=== PATIENT | female | born 1960 | race Caucasian/White ===

== ENCOUNTER 2022-05-15 06:07 | Day surgery (SDC) | payer OTHER ==
[2022-05-15] MEDS ORDERED: Lactated Ringers 1,000 ML IV SCH (06:30)
[2022-05-15] MEDS ORDERED: DIPRIVAN 200 MG/20 ML IV ONE ×2 (07:12→07:51)
[2022-05-15] MEDS ORDERED: Xylocaine-Mpf 2% 5 Ml Vial ONE (07:12)
[2022-05-15] MEDS ORDERED: ROBINUL ONE (08:49)
[2022-05-15 09:12] VITALS: BP 135/83; PULSE 61; O2SAT 98
--- NOTE | 2022-05-15 11:41 | OP ---
SURGERY DATE/TIME: 05/15/2022 0739 PREOPERATIVE DIAGNOSES: 1) Personal history of colon polyps. 2) Family history of colon cancer. POSTOPERATIVE DIAGNOSES: 1) Large proximal sigmoid colon polyp unresectable at 60 cm scope depth. 2) Two small sessile polyps from the distal sigmoid colon. PROCEDURE: Colonoscopy. SURGEON: Sami Vaca M.D. ANESTHESIA: MAC by Ez Mcintyre CRNA. ESTIMATED BLOOD LOSS: Minimal. SPECIMENS: 1) Hot forceps biopsy from unresectable, large proximal sigmoid colon polyp x2. 2) Hot forceps polypectomy from distal sigmoid colon polyp x2. INDICATION FOR PROCEDURE: The patient has a family history of colon cancer with previous history of a large polyp resected in 2019 in [place] and subsequent polyps found on colonoscopy in 2019. DESCRIPTION OF PROCEDURE: She underwent informed consent and was taken to the endoscopy suite. She was placed in left lateral decubitus position. Anesthesia was titrated to desired level of consciousness. Digital rectal exam showed normal sphincter tone and no internal lesions. The scope was passed through the rectum and the entire colonic mucosa was traversed. The level of cecum was reached and verified with direct visualization of the ileocecal valve. There were no obvious lesions or masses in the cecum. Upon withdrawal careful mucosal inspection revealed no abnormalities until 60 cm scope depth in descending/proximal sigmoid colon region. There was a large polypoid lesion that was approximately half the diameter of the colon opening. It had a large base and was felt to be unresectable with hot forceps in this region. A picture was taken representatively to show the size of the lesion at 60 cm scope depth. Two hot forceps biopsies with no bleeding taken from that region. Upon further withdrawal, there were two small sessile polyps in the distal sigmoid colon approximately 25 cm with a scope depth in close proximity. Those were both removed with hot forceps in their entirety with no bleeding. No other lesions were encountered. Retroflexion showed no internal lesions. The scope was removed. The patient was transferred to the recovery room in good condition. She will be referred to general surgery for definitive treatment of this large polypoid lesion.
== END 2022-05-15 09:28 | disposition home or self-care (01) ==
LOC: SDC 06:07
PROVIDERS: ATTEND Family Medicine
DX: Z09 Encounter for follow-up examination after completed treatment for conditions other than malignant neoplasm (principal); Z86.010 Personal history of colon polyps; Z80.0 Family history of malignant neoplasm of digestive organs; K63.5 Polyp of colon; E11.9 Type 2 diabetes mellitus without complications
CPT/HCPCS: 82947; J2704

== ENCOUNTER 2022-06-17 10:55 | Day surgery (SDC) | payer OTHER ==
--- NOTE | 2022-06-17 09:26 | HP ---
DATE OF SURGERY: 06/17/2022 HISTORY OF PRESENT ILLNESS: The patient is a 62-year-old with history of large polyp removed by Dr. Vaca in the past. He is in need of surgical evaluation possible follow up endoscopy. Family history of father with colon cancer. PAST MEDICAL HISTORY: Cataracts. Diabetes mellitus type II. Hypertension. Small cell lung cancer. Gastroesophageal reflux disease. Complications from rectal or sling-type procedure. Arthritis, anemia, urinary tract infections, hyperlipidemia, reflux. PAST SURGICAL HISTORY: Hysterectomy and bilateral salpingo-oophorectomy in the past. Colonoscopy in the past. Laparoscopy for infertility. Cystoscopy with bladder dilatation. Vulvar reconstruction. Left arm fracture repair in the past. Lymph node removed. Partial colectomy. Radiofrequency ablation (RFA) spinal procedures. Endoscopy in the past. MEDICATIONS: Moderna vaccine. Metformin, famotidine, olmesartan, atenolol. ALLERGIES: CIPROFLOXACIN. CODEINE. DOXYCYCLINE. PROCAINE. SULFITE. SULFA. PROMETHAZINE. EPINEPHRINE. NOROXIN. PYRIDIUM. IV CONTRAST. SUTURE SENSITIVITY IN THE PAST. GLUTEN. FAMILY HISTORY: Lung cancer. Father with colon cancer. Renal disease. SOCIAL HISTORY: Smoker. No alcohol abuse. REVIEW OF SYSTEMS: Fourteen systems reviewed. Multiple medical problems as mentioned above. Other systems negative or noncontributory as above and per preadmission questionnaire. PHYSICAL EXAMINATION: GENERAL: No acute distress. HEENT: Sclerae nonicteric. EOMI. Oral mucous membranes moist. NECK: No JVD. CHEST: Equal excursion, nonlabored breathing. CVS: Regular rate and rhythm. ABDOMEN: Soft. No peritoneal signs. EXTREMITIES: No significant edema. NEURO: Alert, oriented, moving extremities symmetrically. RECTAL: Deferred timed to endoscopy exam. PSYCH: Appropriate mood and affect. SKIN: Dry. IMPRESSION: History of large polyp unable to be removed by Dr. Vaca. She was discussed options of attempt removal with some lifting material or tertiary referral, endoscopic opinion versus consideration of surgical resection at this point. If biopsies are benign, she would like to try follow up colonoscopy with attempt at polypectomy per the surgeon there. General risk of bleeding or infection, risk of bowel injury or perforation, risk of missed or nondiagnosis or incomplete exam, general risk of anesthesia or sedation, risk of bowel prep. She understands with a larger polyp there is a little bit higher risk of perforation possibly requiring other procedures, ongoing morbidity but not limited to, possibility if unable to remove safely may need to decide to consider surgery on this at a later date. She understands and agrees to the planned procedure, will proceed with colonoscopy possible biopsy or polypectomy depending on operative findings.
[2022-06-17] MEDS ORDERED: Lactated Ringers 1,000 ML IV SCH (11:30)
[2022-06-17] MEDS ORDERED: Lactated Ringers 1,000 ML IV ONE (11:44)
[2022-06-17] MEDS ORDERED: DIPRIVAN 200 MG/20 ML IV ONE ×2 (12:42→12:59)
[2022-06-17] MEDS ORDERED: Versed 2 MG/2 ML Injection ONE (12:43)
[2022-06-17 14:06] VITALS: BP 143/84; PULSE 51; O2SAT 97
--- NOTE | 2022-06-18 11:15 | OP ---
SURGERY DATE/TIME: 06/17/2022 1246 PREOPERATIVE DIAGNOSIS: History of large polyp that Dr. Vaca removed endoscopically, needs re-evaluation endoscopically as well as marking location. POSTOPERATIVE DIAGNOSES: 1) Large broad based polyp seemed to be proximal sigmoid colon. 2) Diverticulosis. 3) Fair bowel prep. PROCEDURES: Colonoscopy to cecum with hot snare large polyp or lesion proximal sigmoid colon approximately 35 to 40 cm with injection of lift to attempt partial polypectomy as tattooing with spot tattoo. SURGEON: Dr. Arnaldo Rendon. ANESTHESIA: MAC. ESTIMATED BLOOD LOSS: Minimal. INDICATIONS: As noted above. Risks and benefits explained in detail but not limited to and consent obtained. The patient had been given the option of evaluating surgically here locally versus tertiary center, to remove endoscopically versus surgical resection. She preferred to try follow up colonoscopy and possible attempt at polypectomy as local surgeon is here at this time. General risk of bleeding or infection, risk of perforation but not limited to, consent obtained. DESCRIPTION OF PROCEDURE AND FINDINGS: The patient is taken to the endoscopy room. MAC anesthesia induced. After official time out and no disagreement with planned procedure, digital rectal exam did not reveal any rectal masses. Video colonoscope inserted and passed up through the tortuous sigmoid colon. Large polypoid lesion and ulceration. Whether ulceration was previously biopsied by Dr. Vaca or not unclear. The scope was able to be passed around to the cecum. Appendiceal orifice and valve well visualized and photo documented. Patient did have some left colon diverticula. Prep overall was only fair with some liquidy semisolid stool throughout the colon just slightly limiting the exam for small lesions. The scope is carefully pulled back to this large polypoid area 35 to 40 cm from anal verge. Initially the material to wero it or not was not available. What was available at this facility. Lifting agent is carefully injected at the base further in between the polyp area and bowel wall and this was accomplished. Attempted to put the snare in but this area was firm. I was only able to snare off a portion of this. Whether this is a hardened lipoma versus a stromal tumor or other etiology underneath is unclear. It was felt this could not be safely removed endoscopically right at the moment as I had taken a large piece of this it is felt that we should wait for path and then determine options after that, the stromal tumor removed likely will recommend resection. If only lipomatous density discussed options. A portion was retrieved and passed off. It appeared to have adequate hemostasis at the partial polypectomy removal site. Just downstream was injected with 1 cc at one location and 0.5 cc in another location spot tattoo to wero the location. Otherwise at this time I do not see any other large polyps or masses that could be visualized. Again, the prep was fair with liquidy semisolid stool just limiting the exam. The scope is withdrawn. Withdrawal time had been about 10 to 15 minutes. Findings discussed with the family out in the waiting area.
== END 2022-06-17 14:23 | disposition home or self-care (01) ==
LOC: SDC 10:55
PROVIDERS: ATTEND Surgery
DX: Z09 Encounter for follow-up examination after completed treatment for conditions other than malignant neoplasm (principal); Z86.010 Personal history of colon polyps; K63.5 Polyp of colon; K57.30 Diverticulosis of large intestine without perforation or abscess without bleeding; E11.9 Type 2 diabetes mellitus without complications; Z80.0 Family history of malignant neoplasm of digestive organs; Z85.118 Personal history of other malignant neoplasm of bronchus and lung
CPT/HCPCS: 82947; J2250; J2704

== ENCOUNTER 2023-12-28 11:31 | Emergency (ER) | payer MEDICARE ==
[2023-12-28 11:52] VITALS: TEMP 96.9
[2023-12-28] MEDS ORDERED: Lactated Ringers 1,000 ML IV ONE (11:56)
[2023-12-28] MEDS ORDERED: PROTONIX 40 MG IV IV ONE (11:56)
[2023-12-28] MEDS ORDERED: Zofran 4 MG/2 ML VIAL ONE (11:56)
[2023-12-28] MEDS ORDERED: MORPHINE SULFATE 4 MG INJ ONE (11:56)
[2023-12-28] MEDS: MORPHINE SULFATE 4 MG INJ IV ONE (12:00)
[2023-12-28] MEDS: Lactated Ringers 1,000 ML IV ONE (12:00)
[2023-12-28] MEDS: Zofran 4 MG/2 ML VIAL IV ONE (12:00)
[2023-12-28] MEDS: PROTONIX 40 MG IV IV ONE (12:01)
--- NOTE | 2023-12-28 12:10 | ERPHSYRPT ---
- History of Present Illness Time Seen by Provider: 12/28/23 12:06 Historian: patient Exam Limitations: no limitations Patient Subjective Stated Complaint: pt here for pain to right lower abd that radiates to groin area, with nausea, no fever Triage Nursing Assessment: pt alert, walked in, unable to get comfortable, able to void but feels pressure in groin area abd soft but tender to touch. bs heard Physician History: Patient is 63-year-old female with significant past medical history of type 2 diabetes hypertension history of chronic renal insufficiency stage III ate something last night especially taco and at around 2 or 3:00 in the morning she started having a severe abdominal pain which was initially in the back radiating to the right lower abdomen and right groin area pain was also in the right lower inguinal area. She is also complaining of nausea and unable to keep anything down. She denies any fever or chills. She is complaining of some difficulty in urination. She feels gassy as well as when she tried to pass the bowel movement her abdominal pain get worse. Initially her abdominal pain was around periumbilical area and general abdominal area but now it has localized into the right inguinal area right lower quadrant and groin area. Timing/Duration: today Activities at Onset: none Quality: cramping, sharpness, stabbing Abdominal Pain Onset Location: RLQ, periumbilical, suprapubic, flank Pain Radiation: RLQ, groin Severity of Pain-Max: moderate Severity of Pain-Current: moderate Modifying Factors: Improves With: nothing Associated Symptoms: denies symptoms Previous symptoms: no prior history Body Map: 1 - area of pain Allergies/Adverse Reactions: doxycycline [From Vibramycin] Allergy (Severe, Verified 12/28/23 11:44) Shortness of Breath epinephrine Allergy (Severe, Verified 12/28/23 11:44) Shortness of Breath Iodinated Contrast Media Allergy (Severe, Verified 12/28/23 11:44) NSAIDS (Non-Steroidal Anti-Inflamma Allergy (Severe, Verified 12/28/23 11:44) procaine [From Novocain] Allergy (Severe, Verified 12/28/23 11:44) Anaphylactic Reaction Sulfa (Sulfonamide Antibiotics) Allergy (Severe, Verified 12/28/23 11:44) Anaphylactic Reaction sulfite Allergy (Severe, Verified 12/28/23 11:44) Anaphylactic Reaction codeine Allergy (Intermediate, Verified 12/28/23 11:44) Irregular Heart Beat phenazopyridine [From Pyridium] Allergy (Intermediate, Verified 12/28/23 11:44) Skin Irritation ciprofloxacin Adverse Reaction (Intermediate, Verified 12/28/23 11:44) Rash gluten Adverse Reaction (Intermediate, Verified 12/28/23 11:44) Diarrhea lactase [From Dairy Aid] Adverse Reaction (Intermediate, Verified 12/28/23 11:44) Diarrhea norfloxacin [From Noroxin] Adverse Reaction (Intermediate, Verified 12/28/23 11:44) Rash Sutures Adverse Reaction (Intermediate, Verified 12/28/23 11:44) lisinopril Adverse Reaction (Verified 12/28/23 11:44) Home Medications: Famotidine 20 mg PO BID 04/08/22 [History] Insulin NPH Human Isophane [Novolin N] 40 unit SQ HS 04/08/22 [History] Metformin HCl 500 mg [Glucophage 500 MG] 500 mg PO HS 04/08/22 [History] Olmesartan Medoxomil [Benicar] 40 mg PO DAILY 04/08/22 [History] atenoloL [Atenolol] 25 mg PO DAILY 04/08/22 [History] Hx Influenza Vaccination/Date Given: No Hx Pneumococcal Vaccination/Date Given: No Immunizations Up to Date: Yes Travel Risk - International Travel Have you traveled outside of the country in past 3 weeks: No - Emerging Infectious Disease Are you exhibiting symptoms associated with any current EIDs: Yes Symptoms: Abdominal Pain - Review of Systems Constitutional: No Fever, No Chills Eyes: No Symptoms Ears, Nose, & Throat: No Symptoms Respiratory: No Cough, No Dyspnea Cardiac: No Chest Pain, No Edema, No Syncope Abdominal/Gastrointestinal: Abdominal Pain, Nausea, No Vomiting, No Diarrhea Genitourinary Symptoms: No Dysuria Musculoskeletal: No Back Pain, No Neck Pain Skin: No Rash Neurological: No Dizziness, No Focal Weakness, No Sensory Changes Psychological: No Symptoms Endocrine: No Symptoms All Other Systems: Reviewed and Negative - Past Medical History Pertinent Past Medical History: Yes Neurological History: Other ENT History: Cataracts Cardiac History: Angina, Hypertension Respiratory History: Bronchitis Endocrine Medical History: Diabetes Type II, Other Musculoskeletal History: Osteoarthritis GI Medical History: Diverticulosis, GERD, Polyps History: Renal Disease, Other Psycho-Social History: Anxiety Female Reproductive Disorders: No Pertinent History Other Medical History: MODERATE KIDNEY FAILURE 2X, IS BETTER NOW. FATTY LIVER. - Past Surgical History Past Surgical History: Yes Neuro Surgical History: No Pertinent History Cardiac: No Pertinent History Respiratory: No Pertinent History Gastrointestinal: Appendectomy, Exploratory Laparoscopy, Rectal Surgery Genitourinary: No Pertinent History Musculoskeletal: Other Female Surgical History: Hysterectomy, Other Other Surgical History: BSO AND RECTOCELE REPAIR, PARTIAL VULVECTOMY X2, VULVAR RECONSTRUCTION, LEFT ARM FRACTURE REPAIR, EXP LAP X4, CYSTO WITH BLADDER DILATION X6 RFA LUMBAR X2, COLONOSCOPY X4, LYMPH NODE REMOVED - Social History Smoking Status: Current every day smoker How long have you smoked: age 11 Exposure to second hand smoke: Yes Drug Use: none - Social Determinants of Health Will the patient participate in the screening: Declined to provide - Nursing Vital Signs Nursing Vital Signs: Initial Vital Signs Temperature 96.9 F 12/28/23 11:51 Pulse Rate 67 12/28/23 11:51 Respiratory Rate 18 12/28/23 11:51 Blood Pressure 155/70 12/28/23 11:51 O2 Sat by Pulse Oximetry 98 12/28/23 11:51 Pain Scale Pain Intensity 4 - Physical Exam General Appearance: no apparent distress, alert Eye Exam: PERRL/EOMI, eyes nml inspection Ears, Nose, Throat Exam: normal ENT inspection, pharynx normal, moist mucous membranes Neck Exam: normal inspection, non-tender, supple, full range of motion Respiratory Exam: normal breath sounds, lungs clear, No respiratory distress Cardiovascular Exam: regular rate/rhythm, normal heart sounds Gastrointestinal/Abdomen Exam: soft, tenderness (RLQ, Groin), No mass Pelvic Exam: not done Rectal Exam: deferred Back Exam: normal inspection, normal range of motion, No CVA tenderness, No vertebral tenderness Extremity Exam: normal inspection, normal range of motion, pelvis stable Neurologic Exam: alert, oriented x 3, cooperative, normal mood/affect, nml cerebellar function, sensation nml, No motor deficits Skin Exam: normal color, warm, dry SpO2: 98 - Course Nursing assessment & vital signs reviewed: Yes - CT Exams Abdomen/Pelvis CT Interpretation: Tele-radiologist Report Ordered Tests: Active Orders 24 hr Category Date Time Status IV Insertion STAT Care 12/28/23 11:49 Active ABDOMEN AND PELVIS W/0 CONTRAS [CT] Stat Exams 12/28/23 12:35 Completed AMYLASE Stat Lab 12/28/23 11:53 Completed CBC W DIFF Stat Lab 12/28/23 11:53 Completed CMP Stat Lab 12/28/23 11:53 Completed LIPASE Stat Lab 12/28/23 11:53 Completed UA W/RFX UR CULTURE Stat Lab 12/28/23 11:54 Completed Medication Summary Discontinued Medications Generic Name Dose Route Start Last Admin Trade Name Freq PRN Reason Stop Dose Admin Hydromorphone HCl Confirm 12/28/23 12:22 Hydromorphone 1 Mg/1ml Inj Administered 12/28/23 12:23 Dose 1 mg .ROUTE .STK-MED ONE Hydromorphone HCl 1 mg 12/28/23 12:23 12/28/23 12:26 Hydromorphone 1 Mg/1ml Inj IV 12/28/23 12:24 1 mg STAT ONE Administration Hydromorphone HCl 1 mg 12/28/23 13:28 12/28/23 13:31 Hydromorphone 1 Mg/1ml Inj IV 12/28/23 13:29 1 mg STAT ONE Administration Hydromorphone HCl Confirm 12/28/23 13:30 Hydromorphone 1 Mg/1ml Inj Administered 12/28/23 13:31 Dose 1 mg .ROUTE .STK-MED ONE Lactated Ringer's 1,000 mls @ 999 mls/hr 12/28/23 11:51 12/28/23 13:01 Lactated Ringers IV 12/28/23 12:51 Infused .Q1H1M ONE Infusion Lactated Ringer's Confirm 12/28/23 11:56 Lactated Ringers Administered 12/28/23 11:57 Dose 1,000 mls @ ud IV .STK-MED ONE Ceftriaxone Sodium 1 gm in 100 mls @ 200 mls/hr 12/28/23 12:58 12/28/23 13:41 Rocephin 1 Gm / 100 Ml Nacl IV 12/28/23 13:27 Infused STAT ONE Infusion Ceftriaxone Sodium Confirm 12/28/23 13:03 Rocephin 1 Gm / 100 Ml Nacl Administered 12/28/23 13:04 Dose 1 gm in 100 mls @ ud IV .STK-MED ONE Morphine Sulfate 4 mg 12/28/23 11:51 12/28/23 12:00 Morphine Sulfate 4 Mg/Ml Injection IV 12/28/23 11:52 4 mg STAT ONE Administration Morphine Sulfate Confirm 12/28/23 11:56 Morphine Sulfate 4 Mg/Ml Injection Administered 12/28/23 11:57 Dose 4 mg .ROUTE .STK-MED ONE Ondansetron HCl 4 mg 12/28/23 11:51 12/28/23 12:00 Ondansetron Hcl 4 Mg/2 Ml Vial IV 12/28/23 11:52 4 mg STAT ONE Administration Ondansetron HCl Confirm 12/28/23 11:56 Ondansetron Hcl 4 Mg/2 Ml Vial Administered 12/28/23 11:57 Dose 4 mg .ROUTE .STK-MED ONE Pantoprazole Sodium 40 mg 12/28/23 11:51 12/28/23 12:01 Pantoprazole 40 Mg Vial IV 12/28/23 11:52 40 mg STAT ONE Administration Pantoprazole Sodium Confirm 12/28/23 11:56 Pantoprazole 40 Mg Vial Administered 12/28/23 11:57 Dose 40 mg IV .STK-MED ONE Lab/Rad Data: Laboratory Result Diagrams 12/28/23 11:53 12/28/23 11:53 Laboratory Results 12/28/23 12/28/23 12/28/23 Range/Units 11:54 11:53 11:53 WBC 12.0 H (3.98-10.04) x10^3/uL RBC 4.09 (3.93-5.22) x10^6/uL Hgb 13.7 (11.2-15.7) g/dL Hct 38.9 (34.1-44.9) % MCV 95.1 H (79.4-94.8) fL MCH 33.5 H (25.6-32.2) pg MCHC 35.2 (32.2-35.5) g/dL RDW 12.4 (11.7-14.4) % Plt Count 299 (182-369) x10^3/uL MPV 9.9 (9.4-12.3) fL Gran % 70.4 (34.0-71.1) % Immature Gran % (Auto) 0.8 H (0.001-0.429) % Nucleat RBC Rel Count 0.0 (0.00-0.2) % Eos # (Auto) 0.12 (0.04-0.36) x10^3/uL Immature Gran # (Auto) 0.10 H (0.001-0.031) x10^3u/L Absolute Lymphs (auto) 2.55 (1.18-3.74) x10^3/uL Absolute Monos (auto) 0.71 (0.24-0.86) x10^3/uL Absolute Nucleated RBC 0.00 (0.00-0.012) x10^3u/L Lymphocytes % 21.2 (19.3-51.7) % Monocytes % 5.9 (4.7-12.5) % Eosinophils % 1.0 (0.7-5.8) % Basophils % 0.7 (0.1-1.2) % Absolute Granulocytes 8.44 H (1.56-6.13) x10^3/uL Basophils # 0.09 H (0.01-0.08) x10^3/uL Sodium 139 (135-145) mmol/L Potassium 3.9 (3.5-5.1) mmol/L Chloride 107 (98-107) mmol/L Carbon Dioxide 18 L (22-30) mmol/L Anion Gap 18.3 H (5-15) MEQ/L BUN 17 (7-17) mg/dL Creatinine 1.38 H (0.52-1.04) mg/dL Estimated GFR 42.5 ML/MIN Glucose 184 H (74-106) mg/dL Calcium 9.7 (8.4-10.2) mg/dL Total Bilirubin 0.50 (0.2-1.3) mg/dL AST 32 (14-36) U/L ALT 43 H (0-35) U/L Alkaline Phosphatase 93 (38-126) U/L Serum Total Protein 7.5 (6.3-8.2) g/dL Albumin 4.5 (3.5-5.0) g/dL Amylase 135 H (30-110) U/L Lipase 332 H (23-300) U/L Urine Color Yellow (Yellow) Urine Appearance Cloudy A (Clear) Urine pH 5.0 (4.6-8.0) Ur Specific [place] 1.015 (1.005-1.030) Urine Protein Negative (Negative) Urine Glucose (UA) Negative (Negative) mg/dL Urine Ketones Negative (Negative) Urine Blood Moderate A (Negative) Urine Nitrite Negative (Negative) Urine Bilirubin Negative (Negative) Urine Urobilinogen 0.2 (0.2) mg/dL Ur Leukocyte Esterase Negative (Negative) U Hyaline Cast (Auto) NONE SEEN (0-2) /LPF Urine Microscopic RBC 51-100 A (0-5) /HPF Urine Microscopic WBC 0-2 (0-5) /HPF Ur Epithelial Cells None Seen (None Seen) /HPF Urine Bacteria None Seen (None Seen) /HPF Urine Culture Reflexed NO (NO) Unremarkable lower Ct chest cuts. IMPRESSION: 1. A tiny 2.8 mm dense stone is noted related to the right vesicoureteric junction, with mild backpressure changes. 2. Other bilateral lower calyceal non-obstructing stones. 3. Tiny right middle calyceal gravel. 4. Bilateral renal cortical cysts. 5. Mild fatty hepatomegaly. 6. A left adrenal gland nodule measuring 25 mm, showed a negative HU value denoting lipid-rich adenoma. 7. Sigmoid multiple diverticular outpouchings, with no surrounding inflammatory changes. [facility] - Progress Progress: improved, pain not gone completely Progress Note: 12/28/23 13:51 Patient did pass the stone urine was drained and it did show around 2.5 mm stone which was sent for laboratory analysis. Patient is informed. Counseled pt/family regarding: lab results, diagnosis, need for follow-up, rad results Medical Desision Making - Independent Historian Additional History obtained from: Spouse - Discussion of managment Reviewed:: Test results, Need for additional workup - Diagnostic Testing Diagnostic test were ordered, analyzed, and reviewed by me: Yes Radiological Interpretation: Teleradiologist Report - Risk of complications The pt has a mod risk of morbidity or mortality based on: Need for prescription drug management, Need for minor surgical intervention in patient with know risk factors - Departure Departure Disposition: Home Clinical Impression: Right ureteral calculus Condition: Stable Critical Care Time: No Referrals: NERISSA RAWLS MD [Emergency Provider] - Follow Up with PCP/3 days Instructions: Kidney stones in adults, Kidney stone diet Additional Instructions: Discharge/Care Plan JUANY ERVIN was seen on 12/28/23 in the Emergency Room. The patient was counseled regarding Diagnosis,Lab results, Imaging studies, need for follow up and when to return to the Emergency Room. Prescriptions given: Discharge Note I have spoken with the patient and/or caregivers. I have explained the patient's condition, diagnosis and treatment plan based on the information available to me at this time. I have answered the patient's and/or caregiver's questions and addressed any concerns. The patient and/or caregivers have as good understanding of the patient's diagnosis, condition and treatment plan as can be expected at this point. The vital signs have been stable. The patient's condition is stable and appropriate for discharge from the emergency department. The patient will pursue further outpatient evaluation with the primary care physician or other designated or consulting physician as outlined in the discharge instructions. The patient and/or caregivers are agreeable to this plan of care and follow-up instructions have been explained in detail. The patient and/or caregivers have received these instruction. The patient/and or caregivers are aware that any significant change in condition or worsening of symptoms should prompt an immediate return to this or the closest emergency department or call 911. JUANY ERVIN was seen on 12/28/23 n the Emergency Room. At that time you were treated for an emergent condition, during your visit Laboratory, Radiology and/or other procedures may have been ordered. It is very important that you follow-up with your Primary Care Physician SALIMA PANDEY within the next 24-48 hours to review your Emergency Room visit and the final results of testing that was ordered. Some test results such as Urine Cultures, Blood Cultures, and other cultures if ordered will not be finalized for 24-48 hours. If you do not have a Primary Care Provider please call the medical records department at [phone] ext [phone] to obtain a copy of your results or you may sign into our patient portal to obtain these results by visiting us @ [email or web address] and completing the following steps: 1. Click on the Patient Portal link 2. Click the Patient Self Enrollment Link to complete the enrollment form and entering your 3. Once the enrollment form is completed you will receive an email with a tem porary ID and password at the email address you provided. 4. Next choose a user name and password. Your user name must be at least 4 characters long and your password must be at least 4 characters long. 5. Choose a security question from the list and provide your answer to the question. If you already have signed into the Health Portal you may access your Health Care Information 23/09 by the following steps: 1. Login to our website @ [email or web address] 2. Enter your original user name and password. FAQS The [facility] Health Portal is an online tool that contains your Lab Results, Radiology Reports, Visit History, Discharge Instructions and Health Summary Lab and Radiology Results will not be available for 72 hours on the portal. The Portal is a secure site, passwords are encryted and URLs are re-written so they cannot be copied and pasted. You and authorized family members are the only ones who can access your Portal. Also there is a timeout feature that protects your information if you leave the Portal page open. If you have technical difficulty please use the Contact Us link on the page this will allow you to submit any questions you have regarding the Portal or you may contact the Medical Record Department at [phone]. Prescriptions: Cefdinir 300 mg PO BID #15 cap Ciprofloxacin [Cipro 500 MG] 500 mg PO BIDAC #20 tablet
[2023-12-28 12:13] LABS: Absolute Neutrophil Ct (ANC) 8.44 x10^3/uL (1.56-6.13); BASOPHIL % 0.7 % (0.1-1.2); Basophil (Absolute #) 0.09 x10^3/uL (0.01-0.08); Eosinophil (Absolute #) 0.12 x10^3/uL (0.04-0.36); Hematocrit 38.9 % (34.1-44.9); Hemoglobin 13.7 g/dL (11.2-15.7); IMMATURE GRAN % 0.8 % (0.001-0.429); Lymphocyte (Absolute #) 2.55 x10^3/uL (1.18-3.74); Lymphocytes % 21.2 % (19.3-51.7); Mean Cell Volume 95.1 fL (79.4-94.8); Mean Corpuscular Hemoglobin 33.5 pg (25.6-32.2); Mean Corpuscular Hgb Concent. 35.2 g/dL (32.2-35.5); Mean Platelet Volume 9.9 fL (9.4-12.3); Monocyte (Absolute #) 0.71 x10^3/uL (0.24-0.86); Monocytes % 5.9 % (4.7-12.5); Neutrophil % 70.4 % (34.0-71.1); Platelet Count 299 x10^3/uL (182-369); Red Blood Count 4.09 x10^6/uL (3.93-5.22); Red Cell Distribution Width 12.4 % (11.7-14.4)
[2023-12-28] MEDS ORDERED: Hydromorphone 1 mg/ml Injection ONE ×2 (12:22→13:30)
[2023-12-28 12:25] LABS: ALBUMIN 4.5 g/dL (3.5-5.0); ANION GAP 18.3 MEQ/L (5-15); BILIRUBIN,TOTAL 0.5 mg/dL (0.2-1.3); Calcium 9.7 mg/dL (8.4-10.2); Creatinine 1 1.38 mg/dL (0.52-1.04); EST GLOMERULAR FILTRATION RATE 42.5 ML/MIN; Potassium 3.9 mmol/L (3.5-5.1); Total Protein 7.5 g/dL (6.3-8.2)
[2023-12-28] MEDS: Hydromorphone 1 mg/ml Injection IV ONE ×2 (12:26→13:31)
[2023-12-28 12:27] LABS: Appearance Cloudy (Clear); Bacteria None Seen /HPF (None Seen); Bilirubin Negative (Negative); Blood Moderate (Negative); Epithelial Cells None Seen /HPF (None Seen); Glucose, Urine Negative (Negative); Hyaline Casts NONE SEEN /LPF (0-2); Ketones Negative (Negative); Leukocyte Esterase Negative (Negative); Nitrite Negative (Negative); Protein,Urine Dip Negative (Negative); RBC 51-100 /HPF (0-5); Specific Gravity 1.015 (1.005-1.030); Urobilinogen 0.2 mg/dL (0.2); WBC 0-2 /HPF (0-5)
[2023-12-28 13:02] VITALS: RESP 16
[2023-12-28] MEDS ORDERED: ROCEPHIN 1 GM / 100 ML NaCl 1 GM/100 ML IVPB IV ONE (13:03)
[2023-12-28] MEDS: ROCEPHIN 1 GM / 100 ML NaCl 1 GM/100 ML IVPB IV ONE (13:06)
--- NOTE | 2023-12-28 13:36 | XRAY ---
CLINICAL HISTORY: right CVA and lower quadrant pain COMPARISON: none. TECHNIQUE: A CT scan of the abdomen and pelvis was performed without IV contrast. Coronal and sagittal reconstructive images were also obtained.One of the following dose-reduction techniques was utilized for this exam. Automated exposure control, adjustment of the mA and/or kV according to patient size, and use of iterative reconstruction. FINDINGS: Abdomen: A tiny 2.8 mm dense stone is noted related to the right vesicoureteric junction, with upstream mild dilatation of the right ureter and right pelvicalyceal system. Right lower calyceal conglomerate dense stones measuring collectively 9 x 3 mm along maximum axial diameters. Tiny right middle calyceal gravel. Right lower polar renal cyst measuring 42 mm along maximum diameter. Right godfrey-renal mild fat smudging and stranding. A left lower calyceal triangular dense stone measuring 10 x 9 mm along maximum CC and TV diameters, no backpressure changes. Other tiny hyperdensities are seen at the left upper pole eccentrically located and seem to relate to the renal vessels, likely vascular calcification. Small left midpolar exophytic isodense lesion, likely exophytic high proteinaceous cyst measuring 9 mm. Another left lower polar 11 mm exophytic cyst with faint marginal tiny classifications. The liver is enlarged and measures 18 cm showing diffuse reduced parenchymal density. No focal parenchymal abnormality. The portal vein, intrahepatic biliary radicals, and the bile ducts are normal. The spleen, pancreas, and right adrenal gland are unremarkable. A left adrenal gland nodule measuring 25 mm, showed a negative HU value denoting lipid-rich adenoma. The gallbladder is normal. No pericholecystic collection or radio-dense calculi in the gall bladder. A small wide nech gastric fundus posteriorly located diverticulum measuring 15 mm along maximum TV diameter. The ascending colon, the transverse colon, the descending colon, visualized small bowel loops are unremarkable. The appendix is normal in size without godfrey appendiceal fat stranding and without an appendicolith. There is no evidence of significant enlargement of the mesenteric or retroperitoneal lymph nodes. Tiny reactive-looking para-aortic and aorto-caval and mesenteric lymph nodes. A left lumbar mesenteric fat calcific focus, likely calcified lymph node. Atherosclerotic changes of the abdominal aorta and both iliac arteries. Small omental containing umbilical hernia. Pelvis: The urinary bladder is unremarkable. Sigmoid multiple diverticular outpouchings, with no surrounding inflammatory changes. The pelvic structures are unremarkable. No evidence of pelvic lymphadenopathy. Small left inguinal fat-containing inguinal hernia. Spondylodegenerative changes with moderate levoscoliosis. No lytic or sclerotic bone lesions Unremarkable lower Ct chest cuts. IMPRESSION: 1. A tiny 2.8 mm dense stone is noted related to the right vesicoureteric junction, with mild backpressure changes. 2. Other bilateral lower calyceal non-obstructing stones. 3. Tiny right middle calyceal gravel. 4. Bilateral renal cortical cysts. 5. Mild fatty hepatomegaly. 6. A left adrenal gland nodule measuring 25 mm, showed a negative HU value denoting lipid-rich adenoma. 7. Sigmoid multiple diverticular outpouchings, with no surrounding inflammatory changes. [facility] was called at [phone] at 12:28 PM ENDOSCOPIC TECHNICIAN, 02/27/2024, and Michelle (Nurse) was informed regarding the presence of important medical findings on the report. Electronically Signed by: Rajan Valladares MD. (12/28/2023 13:33:37 EDT)
[2023-12-28 13:50] VITALS: O2SAT 98
[2023-12-28 14:03] VITALS: BP 140/96
[2023-12-28 14:22] VITALS: PULSE 80
== END 2023-12-28 14:22 | disposition home or self-care (01) ==
LOC: ED 11:31
DX: N20.1 Calculus of ureter (principal); R10.31 Right lower quadrant pain; R11.2 Nausea with vomiting, unspecified; R39.198 Other difficulties with micturition; E11.22 Type 2 diabetes mellitus with diabetic chronic kidney disease; I12.9 Hypertensive chronic kidney disease with stage 1 through stage 4 chronic kidney disease, or unspecified chronic kidney disease; N18.30 Chronic kidney disease, stage 3 unspecified; Z79.4 Long term (current) use of insulin; Z79.84 Long term (current) use of oral hypoglycemic drugs; Z79.899 Other long term (current) drug therapy; Z72.0 Tobacco use
CPT/HCPCS: 36000; 36415; 74176; 80053; 81001; 82150; 82360; 83690; 85025; 96360; 96365; 96374; 96375; 96376; 99284; J0696; J1171; J2270; J2405